=== PATIENT | male | born 1980 | race Hispanic/Latino ===

== ENCOUNTER 2020-12-02 09:58 | Emergency (ER) | payer OTHER ==
[~2020-12-02] VITALS: Ht 167.6 cm; Wt 83.9 kg
== END 2020-12-02 16:04 | disposition short-term general hospital (02) ==
LOC: ED 09:58
DX: S02.32XA Fracture of orbital floor, left side, initial encounter for closed fracture (principal); S20.212A Contusion of left front wall of thorax, initial encounter; Y04.8XXA Assault by other bodily force, initial encounter; I10 Essential (primary) hypertension; Z87.891 Personal history of nicotine dependence; Z88.8 Allergy status to other drugs, medicaments and biological substances; Z20.822 Contact with and (suspected) exposure to COVID-19
CPT/HCPCS: 70450; 70486; 71045; 72125; 80048; 85025; 96374; 99285-25; C9803; J2270; U0003